=== PATIENT | male | born 1970 | race Caucasian/White ===

== ENCOUNTER 2017-06-14 17:42 | Emergency (ER) | payer SELFPAY ==
[2017-06-14] MEDS ORDERED: ALBUTEROL SULFATE 0.083% NEB 2.5 MG/3 ML AMPUL NEB ONE (18:33)
[2017-06-14] MEDS ORDERED: IPRATROPIUM/ALBUTEROL 0.5-2.5 MG/3 ML AMPUL NEB ONE (18:33)
[2017-06-14] MEDS ORDERED: PREDNISONE 20 MG TABLET PO ONE (18:33)
--- NOTE | 2017-06-14 18:33 | ER Document Report ---
ED Respiratory Problem - General Chief Complaint: Cough Stated Complaint: COUGH,SHORTNESS OF BREATH Time Seen by Provider: 06/14/17 18:12 Mode of Arrival: Ambulatory Information source: Patient TRAVEL OUTSIDE OF THE [place] IN LAST 30 DAYS: No - HPI Patient complains to provider of: Cough, Short of breath Onset: Other - 1 month Duration: Worse/persistent Context: Smoker Short of Breath: Moderate Chest pain/discomfort: Tightness Cough: Nonproductive Associated symptoms: Cough, Short of breath, Wheezing Notes: Patient is a 46-year-old male presenting to the emergency room today complaining of 1 month history of nonproductive cough with difficulty breathing and shortness of breath, he is a smoker having cut back recently from 2 packs a day, no fevers, he does have occasional posttussive emesis - Related Data Allergies/Adverse Reactions: latex Allergy (Verified 06/14/17 18:02) bee stings Allergy (Uncoded 06/14/17 18:02) Past Medical History - General Information source: Patient - Social History Smoking Status: Current Every Day Smoker Chew tobacco use (# tins/day): No Frequency of alcohol use: None Drug Abuse: None Family History: Reviewed & Not Pertinent Renal/ Medical History: Denies: Hx Peritoneal Dialysis Review of Systems - Review of Systems Constitutional: No symptoms reported EENT: No symptoms reported Cardiovascular: No symptoms reported Respiratory: See HPI Gastrointestinal: No symptoms reported Genitourinary: No symptoms reported Male Genitourinary: No symptoms reported Musculoskeletal: No symptoms reported Skin: No symptoms reported Hematologic/Lymphatic: No symptoms reported Neurological/Psychological: No symptoms reported -: Yes All other systems reviewed and negative Physical Exam - Vital signs Vitals: Temp Pulse Resp BP Pulse Ox 98.4 F 77 16 148/88 H 96 06/14/17 17:58 06/14/17 17:58 06/14/17 17:58 06/14/17 17:58 06/14/17 17:58 Interpretation: Normal - General General appearance: Appears well, Alert - HEENT Head: Normocephalic, Atraumatic Eyes: Normal Pupils: PERRL - Respiratory Respiratory status: No respiratory distress Chest status: Nontender Breath sounds: Nonproductive cough, Rhonchi, Wheezing Chest palpation: Normal - Cardiovascular Rhythm: Regular Heart sounds: Normal auscultation Murmur: No - Abdominal Inspection: Normal Distension: No distension Bowel sounds: Normal Tenderness: Nontender Organomegaly: No organomegaly - Back Back: Normal, Nontender - Extremities General upper extremity: Normal inspection, Nontender, Normal color, Normal ROM , Normal temperature General lower extremity: Normal inspection, Nontender, Normal color, Normal ROM , Normal temperature, Normal weight bearing. No: Belinda's sign - Neurological Neuro grossly intact: Yes Cognition: Normal Orientation: AAOx4 [place] Coma Scale Eye Opening: Spontaneous Emily Coma Scale Verbal: Oriented Emily Coma Scale Motor: Obeys Commands Emily Coma Scale Total: 15 Speech: Normal Motor strength normal: LUE, RUE, LLE, RLE Sensory: Normal - Psychological Associated symptoms: Normal affect, Normal mood - Skin Skin Temperature: Warm Skin Moisture: Dry Skin Color: Normal Course - Re-evaluation Re-evalutation: 06/14/17 20:37 Patient reports feeling much better after breathing treatments, symptoms are consistent with likely COPD exacerbation, since he is a smoker and an EMT going to place him on a Z-Ousmane in case there is an underlying infection, patient was discharged with instructions to stop smoking, follow-up with a primary care provider or return if symptoms worsen, patient acknowledges understanding and agreement with this plan - Vital Signs Vital signs: Temp Pulse Resp BP Pulse Ox 98.4 F 77 16 148/88 H 96 06/14/17 17:58 06/14/17 17:58 06/14/17 17:58 06/14/17 17:58 06/14/17 17:58 - Diagnostic Test Radiology reviewed: Image reviewed Discharge - Discharge Clinical Impression: Acute bronchitis Qualifiers: Bronchitis organism: unspecified organism Qualified Code(s): J20.9 - Acute bronchitis, unspecified Condition: Stable Disposition: HOME, SELF-CARE Instructions: Bronchitis ([facility]), Chronic Obstructive Lung Disease ([facility]) Additional Instructions: Follow up with your primary care provider in one to 2 days. Return to the emergency room immediately if symptoms worsen or any additional concerns. Your chest x-ray today did not show any signs of active infection or other abnormalities. Prescriptions: Albuterol Sulfate [Proair HFA Inhalation Aerosol 8.5 gm MDI] 1 puff IH Q4 PRN # 1 mdi PRN Reason: Albuterol Sulfate [Albuterol Sulfate 2.5mg/3 mL] 1 vial IH Q4 PRN #30 vial PRN Reason: Azithromycin [Zithromax 250 mg Tablet] 250 mg PO ASDIR PRN #6 tablet PRN Reason: Prednisone 40 mg PO DAILY #8 tablet Forms: Return to Work, Smoking Cessation Education
[2017-06-14 22:22] VITALS: BP 162/76
--- NOTE | 2017-06-16 16:12 | RADIOLOGY REPORT (SQ) ---
EXAM DESCRIPTION: CHEST PA/LAT COMPLETED DATE/TIME: 06/14/2017 7:01 pm REASON FOR STUDY: cough COMPARISON: 12/11/2014 EXAM PARAMETERS: NUMBER OF VIEWS: two views TECHNIQUE: Digital Frontal and Lateral radiographic views of the chest acquired. RADIATION DOSE: NA LIMITATIONS: none FINDINGS: LUNGS AND PLEURA: No opacities, masses or pneumothorax. No pleural effusion. MEDIASTINUM AND HILAR STRUCTURES: No masses or contour abnormalities. HEART AND VASCULAR STRUCTURES: Heart normal size. No evidence for failure. BONES: No acute findings. HARDWARE: None in the chest. OTHER: No other significant finding. IMPRESSION: NO ACUTE RADIOGRAPHIC FINDING IN THE CHEST. TECHNICAL DOCUMENTATION: JOB ID: [id number] [employer]- All Rights Reserved
== END 2017-06-14 21:19 | disposition home or self-care (01) ==
LOC: ER 17:42
DX: J20.9 Acute bronchitis, unspecified (principal); R05 Cough; R06.02 Shortness of breath; R06.2 Wheezing; F17.200 Nicotine dependence, unspecified, uncomplicated; Z91.040 Latex allergy status; Z91.030 Bee allergy status
CPT/HCPCS: 94640; 99283; 71020; J7512; J7620

== ENCOUNTER 2018-08-15 01:51 | Emergency (ER) | payer SELFPAY ==
[2018-08-15] MEDS ORDERED: DEXAMETHASONE SOD PHOS INJ 10 MG/1 ML VIAL IM ONE (03:06)
[2018-08-15] MEDS ORDERED: IPRATROPIUM/ALBUTEROL 0.5-2.5 MG/3 ML AMPUL NEB ONE (03:07)
--- NOTE | 2018-08-15 04:32 | RADIOLOGY REPORT (SQ) ---
EXAM DESCRIPTION: XR CHEST 2 VIEWS COMPLETED DATE/TME: 08/15/2018 03:07 CLINICAL HISTORY: Cough COMPARISON: None. FINDINGS: Frontal and lateral views of the chest. The cardiomediastinal silhouette has normal size and contour. No consolidation, pneumothorax, or pleural effusion. No displaced rib fractures identified. Upper abdominal soft tissues are unremarkable. IMPRESSION: 1. No acute pulmonary process identified.
--- NOTE | 2018-08-15 04:36 | ER Document Report ---
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 Patient states that H just gotten to the point where he is having a hard time to take a deep breath. He has increased cough and congestion when he lays down. Denies having any fever. Denies any other medical problems. He does smoke 1/2 pack of cigarettes a day. TRAVEL OUTSIDE OF THE [place] IN LAST 30 DAYS: No - HPI Patient complains to provider of: Cough, Hurts to breath, Short of breath Onset: Other - 2 weeks worse the past 2 days Duration: Worse/persistent Initiating Event: Exertion, Exposure to dust, Exposure to mold, Exposure to smoke, URI Quality of pain: No pain Severity: Moderate Pain Level: 3 Short of Breath: Moderate Cough: Productive Sputum amount: Scant At home treatment: Bronchodilators Associated symptoms: Earache, Runny nose, Sore Throat, Wheezing Similar symptoms previously: No Recently seen / treated by doctor: No - Related Data Allergies/Adverse Reactions: latex Allergy (Verified 06/14/17 18:02) bee stings Allergy (Uncoded 06/14/17 18:02) Past Medical History - Social History Smoking Status: Current Every Day Smoker Cigarette use (# per day): Yes - Half-pack Smoking Education Provided: Yes Frequency of alcohol use: Rare Drug Abuse: None Occupation: Medic Lives with: Family Family History: Reviewed & Not Pertinent Patient has suicidal ideation: No Patient has homicidal ideation: No Renal/ Medical History: Denies: Hx Peritoneal Dialysis Review of Systems - Review of Systems Constitutional: Malaise, Weakness EENT: No symptoms reported, Nose congestion, Difficulty swallowing Cardiovascular: No symptoms reported Respiratory: See HPI, Cough, Short of breath, Wheezing Gastrointestinal: No symptoms reported Genitourinary: No symptoms reported Male Genitourinary: No symptoms reported Musculoskeletal: No symptoms reported Skin: No symptoms reported Hematologic/Lymphatic: No symptoms reported Neurological/Psychological: No symptoms reported -: Yes All other systems reviewed and negative Physical Exam - Vital signs Vitals: Temp Pulse Resp BP Pulse Ox 98.4 F 72 18 137/91 H 95 08/15/18 02:36 08/15/18 02:36 08/15/18 02:36 08/15/18 02:36 08/15/18 02:36 Interpretation: Hypertensive - Notes Notes: Well-nourished well-developed 47-year-old male no apparent distress but does appear somewhat uncomfortable appearing. - General In distress: None - HEENT Head: Normocephalic, Atraumatic Eyes: Normal Ears: Normal External canal: Other - Examination of the head and upper airway showed nasal mucosa to be moderately erythematous and with rhinorrhea noted. Bilateral TMs are bulging with mild air-fluid levels noted. External canals both have some mild cerumen although not obstructing the TMs. There is no noted frontal or maxillary sinus tenderness to palpation.. No: Blood in canal, Erythema, Foreign body, Swollen Tympanic membrane: Bulging, Injected. No: Perforation Sinus: Normal, Frontal, Maxillary Nasal: Normal Mouth/Lips: Normal Mucous membranes: Normal, Moist Pharynx: Erythema, Exudate. No: Blood in hypopharynx, Peritonsillar abscess, Post nasal drainage, Retropharyngeal abscess, Tonsillar hypertrophy, Uvular edema, Potential airway comprom. Neck: Anterior cervical chain, Lymphadenopathy, Supple. No: Posterior cervical chain, Brudzinski, Meningismus, Neck mass, Thyroid nodule - Respiratory Respiratory status: No respiratory distress Chest status: Nontender Breath sounds: Decreased air movement, Productive cough, Wheezing. No: Normal, Nonproductive cough, Rales, Rhonchi, Stridor Chest palpation: Normal - Cardiovascular Rhythm: Regular Heart sounds: Normal auscultation Murmur: No Pulses: Bounding: Carotid - Neurological Neuro grossly intact: Yes Cognition: Normal Orientation: AAOx4 [place] Coma Scale Eye Opening: Spontaneous Emily Coma Scale Verbal: Oriented Emily Coma Scale Motor: Obeys Commands [place] Coma Scale Total: 15 Speech: Normal - Skin Skin Temperature: Warm Skin Moisture: Dry Skin Color: [place] Course - Re-evaluation Re-evalutation: 08/15/18 05:24 Patient improved slightly after the breathing treatment. His presentation of his posterior pharynx was more justified then his wheezing. I believe he is got upper airway bronchitis asthmatic type and also a pharyngitis the spring pretty well. So I will place him on some Augmentin for the throat and a steroid taper because of the size of the inflammation of the tonsils and which will also help with his wheezing. - Vital Signs Vital signs: Temp Pulse Resp BP Pulse Ox 98.4 F 72 18 137/91 H 95 08/15/18 02:36 08/15/18 02:36 08/15/18 02:36 08/15/18 02:36 08/15/18 02:36 Discharge - Discharge Clinical Impression: Pharyngitis Qualifiers: Pharyngitis/tonsillitis etiology: other specified organisms Qualified Code(s): J02.8 - Acute pharyngitis due to other specified organisms Asthmatic bronchitis Qualifiers: Asthma severity: moderate Asthma persistence: persistent Asthma complication type: uncomplicated Qualified Code(s): J45.40 - Moderate persistent asthma, uncomplicated Condition: Stable Disposition: HOME, SELF-CARE Instructions: Bronchitis With Bronchospasm (Wheezing) (OM), Tonsillitis ([facility]) , Family Physicians / Practices Additional Instructions: Home today and rest. Medication as prescribed. As we discussed use warm salt water gargles 3-4 times a day for the sore throat portion of it. Tylenol alternating with Motrin for aches and pains and fever. Should he become more short of breath or spike a fever does not go away with the Tylenol Motrin return to ER for recheck. Prescriptions: Amox Tr/Potassium Clavulanate [Augmentin 875-125 Tablet] 1 tab PO BID 10 Days # 20 tablet Prednisone 10 mg PO ASDIR PRN 6 Days #1 tab.ds.pk PRN Reason: Forms: Elevated Blood Pressure, Smoking Cessation Education, Return to Work
[2018-08-15 05:20] VITALS: BP 106/55
== END 2018-08-15 05:45 | disposition home or self-care (01) ==
LOC: ER 01:51
DX: J02.8 Acute pharyngitis due to other specified organisms (principal); J45.40 Moderate persistent asthma, uncomplicated; R05 Cough; R09.81 Nasal congestion; R09.89 Other specified symptoms and signs involving the circulatory and respiratory systems; H92.09 Otalgia, unspecified ear; R53.81 Other malaise; R53.1 Weakness; F17.210 Nicotine dependence, cigarettes, uncomplicated
CPT/HCPCS: 94640; 99283; 96372; 71046; J1100; J7620